=== PATIENT | male | born 1930 | race Caucasian/White ===

== ENCOUNTER 2016-08-17 03:56 | Emergency (ER) | payer OTHER, MEDICARE ==
[~2016-08-17] VITALS: Ht 185.4 cm; Wt 127.0 kg
[~2016-08-17 03:56] MED LIST: CARDIZEM CD180 MG PO; FAMOTIDINE20 MG PO; LEVOTHYROXIN0.088 MG PO; LISINOPRIL10 MG PO; LOPRESSOR 25MG25 MG PO; TYLENOL TAB 32325 MG PO
--- NOTE | 2016-08-17 04:20 | ED CRITICAL CARE ---
See Addendum History of Present Illness General Chief Complaint: Cardiopulmonary Resuscitation Stated Complaint: BIBA CPR Source: patient, old records, EMS, [facility] Exam Limitations: clinical condition Vital Signs & Intake/Output Vital Signs & Intake/Output . Allergies Coded Allergies: No Known Allergies (08/17/16) Reconcile Medications DILTIAZEM HCL (Cardizem Cd) 180 MG C24 1 CAP PO DAILY HEART (Reported) Famotidine 20 MG TAB 1 TAB PO BID GI (Reported) Levothyroxine Sodium (Levothyroxine) 0.088 MG TAB 0.088 MG PO DAILY AC THYROID (Reported) Lisinopril 10 MG TAB 1 TAB PO DAILY HEART (Reported) Metoprolol Tartrate (Lopressor) 25 MG TAB 1 TAB PO BID HEART (Reported) Triage Nurses Notes Reviewed? yes Onset: Abrupt Duration: minute(s): Timing: single episode today Injury Environment: home Severity: severe Associated Symptoms: abdominal pain, vomiting HPI: 86 yo gentleman from [facility] [place], h/o alzheimer's dementia presents in asystolic arrest. Per the medics, he was found on the ground in the bathroom at the [facility]. There was vomitus around him. "We were called for a fall. He was still awake." En route, he became apneic and pulseless. They began CPR. Upon arrival to ED, he was apneic and pulseless. Past History Travel History Traveled to [place] past 21 day No Medical History Any Pertinent Medical History? see below for history Neurological: Alzheimer's disease, dementia, COGNITIVE DEFICIT EENT: cataracts Cardiovascular: hypertension Respiratory: NONE Gastrointestinal: GERD, ESOPHAGITIS Hepatic: NONE Renal: NONE Musculoskeletal: NONE Psychiatric: COGNITIVE DISODER ETOH ABUSE Endocrine: hypothyroidism Blood Disorders: anemia Cancer(s): NONE CAFETERIA SUPERVISOR/Reproductive: NONE Surgical History Surgical History: R HIP ORIF Psychosocial History Who do you live with [facility] Services at Home RESIDENT OF [place] What is your primary language Russian Tobacco Use: UN Family History Hx Contributory? No Review of Systems Review of Systems Constitutional: Denies: see HPI (see below). Comments unknown, due to clinical condition Physical Exam Physical Exam General Appearance: well developed/nourished Head: atraumatic Eyes: Bilateral: other (fixed,dilated,no corneal rflxs). Ears, Nose, Throat, Mouth: copious amounts of yellow bile in oropharynx Neck: normal inspection Respiratory: apneic, no spontaneous breath sounds Cardiovascular: no heart sounds. no palpable pulses. Gastrointestinal: distended, no bowel sounds. non tender Back: normal inspection Extremities: cool, cyanotic extremities Neurologic/Psych: no response to painful stimuli Skin: cyanosis, mottled, pallor Core Measures ACS in differential dx? No CVA/TIA Diagnosis: No Severe Sepsis Present: No Septic Shock Present: No Progress Differential Diagnoses I considered the following diagnoses in my evaluation of the patient: cardiac event vs neuro event vs vascular event. Plan of Care: pt arrived apneic, pulseless, in PEA arrest. I confirmed DNR/DNI status in [address] different [address] on his [facility]10 paperwork. His pupils were fixed, dilated, without corneal reflexes. Pt was initially PEA arrest, with wide-complex bradycardic rhythm, rate 20's. His heart rate rapidly became asystolic after 5 minutes of ED time. time of 4:12 Initial ED EKG: none Rhythm Strip: wide complex bradycardic, PEA, follow up rhythm strip... asystole Departure Departure Disposition: Condition: Stable Clinical Impression Primary Impression: Cardiac arrest Referrals: JACK WADE,MJessica GUILLEN (PCP/Family) Departure Forms: General Discharge Information Comments 08/17/16, 4:22... attempted to call his Next of Kin as listed in our information... Eliseo Potts ([phone])... no response, no answering machine.... attempted to call Jesús Mccarthy ([phone])... no response and received "Mailbox full. Unable to leave message." Critical Care Note Critical Care Note Critical Care Time: 30-74 min
== END 2016-08-17 04:12 | disposition expired ==
LOC: ERH 03:56
DX: I46.9 Cardiac arrest, cause unspecified (principal)